=== PATIENT | male | born 1995 | race Caucasian/White ===

== ENCOUNTER → 2025-06-02 01:02 | Outpatient (BNV) | payer OTHER, SELFPAY | PROVIDERS: Emergency Provider Student in an Organized Health Care Education/Training Program; PCP Physician Assistant Medical; Visit Provider Internal Medicine | DX: R94.31 Abnormal electrocardiogram [ECG] [EKG] (principal); R07.9 Chest pain, unspecified | CPT/HCPCS: 93010 ==

== ENCOUNTER → 2025-06-02 01:44 | Outpatient (BNV) | payer OTHER, SELFPAY | PROVIDERS: Emergency Provider Student in an Organized Health Care Education/Training Program; PCP Physician Assistant Medical; Visit Provider General Practice | DX: R06.02 Shortness of breath (principal) | CPT/HCPCS: 71045 ==

== ENCOUNTER 2025-06-02 01:51 | Emergency (ER) | payer OTHER, SELFPAY ==
--- NOTE | 2025-06-02 | ECG_ITS ---
Test Reason : CP Blood Pressure : */* mmHG Vent. Rate : 90 BPM Atrial Rate : 90 BPM P-R Int : 140 ms QRS Dur : 98 ms QT Int : 344 ms P-R-T Axes : 39 28 22 degrees QTcB Int : 420 ms Normal sinus rhythm with sinus arrhythmia Slight ST elevation lateral leads and slight ST depression inferior leads Abnormal ECG No previous ECGs available Referred By: Generic ED Physician Electronically Signed By: PROMISE TAYLOR
--- NOTE | ~2025-06-02 | XR_ITS ---
CLINICAL HISTORY: sob 1 view chest x-ray Comparison: None provided Findings: No consolidation or effusion. Normal size heart. No acute fracture. IMPRESSION: 1. No acute findings. This document has been electronically signed by: Akil Laurent MD, PHD on 06/02/2025 01:27:02
[2025-06-02 01:18] LABS: Hematocrit 43.9 % (42.0-52.0); Hemoglobin 15.8 g/dl (14.0-18.0); Imm Gran Abs Auto 0.03 X10*3/uL (0.00-0.03); Imm Gran Pct Auto 0.4 % (0.0-0.4); Lymphocytes Absolute Auto 1.8 X10*3/uL (1.2-4.9); MANUAL DIFF FLAG NO; Mean Corpuscular HGB Conc 36.0 g/dl (31.0-36.0); Mean Corpuscular Hemoglobin 28.4 pg (27.0-33.0); Mean Corpuscular Volume 78.8 fL (80.0-98.0); NRBC Abs Auto 0.000 X10*3/uL (0.0-0.012); NRBC Pct Auto 0.0 /100WBC (0.0-0.2); Platelet Count 208 X10*3/uL (160-400); Red Blood Count 5.57 X10*6/uL (4.60-5.80); White Blood Count 8.5 X10*3/uL (4.8-10.8)
--- OUTSIDE RECORDS SUMMARY | 2025-06-02 01:30 | XMS_ITS | Encounter Summary ---
Author Organization [facility] Address [address] [place] [address] Care Team Providers Care Director Of Pulmonary Unit Name Role Phone Sachin Saucedo MD Primary Care Provider [phone] Whit Mays MD Primary Care Provider Unavail able Encounter Details Date Type Department Care Team Description 06/14/2017 Release of Information Medical Records [address] [place] [id number] Abstract, Provider Social History Tobacco Use Types Packs/Day Years Used Date Smoking Tobacco: Never Smokeless Tobacco: Never Alcohol Use Standard Drinks/Week Comments Yes 0 (1 standard drink = 0.6 oz pur e alcohol) a beer q2wks Sex Assigned at Date Recorded Not on file documented as of this encounter Plan of Treatment Not on file documented as of this encounter Visit Diagnoses Not on filedocumented in this encounter Care Teams Director Of Pulmonary Unit Relationship Specialty Start Date End Date Sachin Saucedo MD [address] [place], [place] [id number] PCP - General Internal Medicine 05/09/17 07/10/17 Whit Mays MD [address] [place] [id number] PCP - General 07/11/17 documented as of this encounter
--- OUTSIDE RECORDS SUMMARY | 2025-06-02 01:30 | XMS_ITS | Encounter Summary ---
Author Organization [facility] Address [address] [place] [address] Care Team Providers Care Field Enumerator Name Role Phone Sachin Saucedo MD Primary Care Provider [phone] Whit Mays MD Primary Care Provider Unavail able Reason for Visit * Reason Onset Date Comments APPOINTMENT 07/01/2017 Encounter Details Date Type Department Care Team Description 07/01/2017 Telephone Radiology - [address] [id number] Sachin Saucedo MD [address] [place] [address] [id number] APPOINTMENT Social History Tobacco Use Types Packs/Day Years Used Date Smoking Tobacco: Never Smokeless Tobacco: Never Alcohol Use Standard Drinks/Week Comments Yes 0 (1 standard drink = 0.6 oz pur e alcohol) a beer q2wks Sex Assigned at Date Recorded Not on file documented as of this encounter Miscellaneous Notes * Telephone Encounter - Shikha Voss - 07/01/2017 1:05 PM EST Dear provider, due to limited access at this time, the echocardiogram order you placed for Chapin Lorenz has been sent externally to [facility] to be performed. The order has been faxed to our Prior Authorization pool. You are not required to take any further action. documented in this encounter Plan of Treatment Not on file documented as of this encounter Visit Diagnoses Not on filedocumented in this encounter Care Teams Field Enumerator Relationship Specialty Start Date End Date Sachin Saucedo MD [address] [place] [id number] PCP - General Internal Medicine 05/09/17 07/10/17 Whit Mays MD [address] [place] [address] PCP - General 07/11/17 documented as of this encounter
[2025-06-02 01:31] LABS: Alanine Aminotransferase 46 U/L (0-40); Albumin Level 4.5 g/dL (3.5-5.0); Alkaline Phosphatase 67 U/L (39-117); Anion Gap 15 (12-20); Aspartate Amino Transferase 39 U/L (5-37); Blood Urea Nitrogen 14 mg/dL (9-16); Calcium 8.7 mg/dL (8.4-10.2); Carbon Dioxide 23 mmol/L (22-29); Chloride 98 mmol/L (96-108); Creatinine Clr Calc Pharmacy 114.1; Estimated Glomerular Filt Rate > 60; Potassium 3.2 mmol/L (3.3-5.1); Sodium 133 mmol/L (135-145); Total Protein 7.6 g/dL (6.5-8.0)
[2025-06-02 01:43] LABS: Troponin-I High Sensitivity 542.6 ng/L (<3.5-35.0)
--- NOTE | 2025-06-02 01:43 | ED.CHESTPAIN ---
HPI - Chest Pain General Chief Complaint: Chest Pain Stated Complaint: chest pain that goes down the neck/SOB Time Seen by Provider: 06/02/25 01:36 EST Source: patient Mode of arrival: ambulatory Limitations: no limitations History of Present Illness ED Provider: Dr. Nuno HPI narrative: 29-year-old male no medical history presented hospital today for evaluation of chest pressure sensation and shortness of breath started at 15:00 today. The patient stated that he has been having diarrhea for the past couple of days. It has not been feeling right. He is complaining of some shortness of breath. No cough. Complaining of sternal chest pressure sensation. Related Data Allergies Allergy/AdvReac Type Severity Reaction Status Date / Time amoxicillin Allergy Unknown Verified 06/02/25 01:59 EDT Review of Systems Review of Systems: Pertinent review of systems as mentioned in HPI. All other system otherwise negative. [facility] Past Medical History [facility] Narrative: None Social History Social History Advance Directives: No Advance Directives Information Provided: Yes Do you have a plan to hurt others: No Plan Physical Exam Exam: Exam: General: Pleasant, no distress, interacting appropriately Head: Normacephalic, atraumatic ENT: oral mucosa moist, neck supple, no tracheal deviation Cardiovascular: regular rate, regular rhythm, no murmurs, rubbing, gallops Respiratory: CTAB, no wheeze, rales, rhonchi Gastrointestinal: Soft, non distended, non tender, non guarding Extremities: No limb pain or swelling, no calf tenderness Neurological: Awake and alert, no facial droop noted Skin: Warm and dry Psychiatric: Appropriate mood and thoughts Vital Signs: Vital Signs: Last Vital Signs Pulse 88 06/02/25 02:50 Resp 13 06/02/25 02:50 BP 125/68 06/02/25 02:50 Pulse Ox 100 06/02/25 02:50 O2 Del Method Room Air 06/02/25 02:50 BMI result Body Mass Index 29.3 Medications Administered Generic Name Dose Route Start Last Admin Trade Name Freq PRN Reason Stop Dose Admin Sodium Chloride 500 mls @ 500 mls/hr 06/02/25 02:00 06/02/25 02:50 Ns IV 06/02/25 02:59 Infused .Q1H DONAVAN Infusion Discontinued Medications Generic Name Dose Route Start Last Admin Trade Name Freq PRN Reason Stop Dose Admin Aspirin 324 mg 06/02/25 01:43 EST 06/02/25 02:11 Aspirin 81 Mg Tab.Chew PO 06/02/25 01:44 EST 324 mg ONCE ONE Administration Morphine Sulfate 4 mg 06/02/25 02:08 06/02/25 02:16 Morphine Sulfate 10 Mg/Ml Cartridge IVPUSH 06/02/25 02:09 4 mg ONCE ONE Administration Protocol Nitroglycerin 0.4 mg 06/02/25 01:50 EST 06/02/25 02:10 Nitroglycerin 0.4 Mg Tab.Subl SUBLINGUAL 06/02/25 01:51 EST 0.4 mg ONCE ONE Administration Ticagrelor 180 mg 06/02/25 02:24 06/02/25 02:48 Ticagrelor 90 Mg Tablet PO 06/02/25 02: 180 mg ONCE ONE Administration Medical Decision Making Medical Decision Making [facility] Narrative: 29-year-old male presented hospital today for evaluation of chest pain and shortness of breath. EKG was obtained. Patient does have slight elevation in the lateral leads. Does not meet STEMI criteria. He also has Q-waves in the lateral leads. Initial troponin of 540. Second troponin 661. I did talk the case with Dr. Coe . Recommends calling [facility] and reaching out to them. Patient will be started on heparin drip at this time aspirin, morphine, purulent a, nitroglycerin was given. Patient stated that when the nitroglycerin was given he felt the most relief afterward. He still has slight chest pressure sensation however his pain is much improved at this time. Discussed case with Dr. Adair who recommended transferring to [facility] at this time. He will be the accepting doctor. Discussed with the patient a plan he agrees and understands. Patient will be transferred to [facility] vital signs stable at this time Differential Diagnosis Differential Diagnoses: The differential diagnosis associated with the presentation includes NSTEMI, STEMI, ACS, cardiomyopathy, myocarditis, pericarditis Lab Data [facility] Lab Attestation statement: I reviewed the patient's lab results. 06/02/25 01:11 EST 06/02/25 01:11 EST Labs: Lab Results 06/02/25 06/02/25 06/02/25 Range/Units 01:10 EST 01:11 EST 01:56 EST WBC 8.5 (4.8-10.8) X10*3/uL RBC 5.57 (4.60-5.80) X10*6/uL Hgb 15.8 (14.0-18.0) g/dl Hct 43.9 (42.0-52.0) % MCV 78.8 L (80.0-98.0) fL MCH 28.4 (27.0-33.0) pg MCHC 36.0 (31.0-36.0) g/dl RDW 11.9 (11.0-16.0) % Plt Count 208 (160-400) X10*3/uL MPV 10.1 (9.4-12.4) fL Immature Gran % (Auto) 0.4 (0.0-0.4) % Neut % (Auto) 64.9 (45-73) % Lymph % (Auto) 21.0 (20-40) % [place] % (Auto) 12.9 H (2-11) % Eos % (Auto) 0.6 (0-4) % Baso % (Auto) 0.2 (0-2) % Lymph # (Auto) 1.8 (1.2-4.9) X10*3/uL [place] # (Auto) 1.1 (0.1-1.2) X10*3/uL Eos # (Auto) 0.1 (0.0-0.4) X10*3/uL Baso # (Auto) 0.0 (0.0-0.2) X10*3/uL Abs Immat Gran (auto) 0.03 (0.00-0.03) X10*3/uL Absolute Neuts (auto) 5.5 (2.0-8.3) x10*3/uL Absolute Nucleated RBC 0.000 (0.0-0.012) X10*3/uL Nucleated RBC % (auto) 0.0 (0.0-0.2) /100WBC Sodium 133 L (135-145) mmol/L Potassium 3.2 L (3.3-5.1) mmol/L Chloride 98 (96-108) mmol/L Carbon Dioxide 23 (22-29) mmol/L Anion Gap 15 (12-20) BUN 14 (9-16) mg/dL Creatinine 1.08 (0.5-1.4) mg/dL Estim Creat Clear Calc 114.1 Estimated GFR > 60 Random Glucose 110 (60-115) mg/dL Calcium 8.7 (8.4-10.2) mg/dL Magnesium 2.0 (1.6-2.6) mg/dL Total Bilirubin 0.6 (0.0-1.0) mg/dL AST 39 H (5-37) U/L ALT 46 H (0-40) U/L Alkaline Phosphatase 67 (39-117) U/L Troponin I High Sens 542.6 H* 661.5 H* (<3.5-35.0) ng/L NT-Pro-B Natriuret Pep 350.3 H (<300) pg/mL Total Protein 7.6 (6.5-8.0) g/dL Albumin 4.5 (3.5-5.0) g/dL Independent Interpretation I performed an independent interpretation of an: EKG and Plain X-Ray Radiology Impression Discussion of test interpretation with radiology: I have reviewed the radiologist's reading. Critical Care Time Critical Care Time Critical Care Time: Yes Total Critical Care Time: 50 Attestation: Time is exclusive of separately billable procedures. Time includes: direct patient care, patient reassessment, coordination of patient care, interpretation of data (laboratory data, pulse oximetry, arterial blood gases and chest xrays), review of patient's medical records, medical consultation and documentation of patient care. Procedures excluded from critical care time: central intravenous line placement and electrocardiography. Discharge Plan Discharge Clinical Impression: Acute non-ST elevation myocardial infarction (NSTEMI) Patient Disposition: [facility] Transfer Details: [facility], Dr. Adari Print Language: Romanian
--- NOTE | 2025-06-02 01:50 | ECG_ITS ---
Test Reason : CHEST PAIN Blood Pressure : */* mmHG Vent. Rate : 90 BPM Atrial Rate : 90 BPM P-R Int : 130 ms QRS Dur : 100 ms QT Int : 346 ms P-R-T Axes : 12 22 10 degrees QTcB Int : 423 ms Normal sinus rhythm Slight ST elevation lateral leads and slight ST depression inferior leads When compared with ECG of 02-Jun-2025 01:02, No significant change was found Referred By: Valentina Nuno Electronically Signed By: PROMISE TAYLOR
[2025-06-02 01:55] VITALS: BP 131/79; PULSE 101; RESP 18; O2SAT 96; BMI 27.9
[2025-06-02 02:13] LABS: Magnesium 2.0 mg/dL (1.6-2.6)
[2025-06-02 02:21] LABS: NT Pro B Type Natriuretic Pept 350.3 pg/mL (<300)
[2025-06-02 02:23] LABS: Troponin-I High Sensitivity 661.5 ng/L (<3.5-35.0)
[2025-06-02 02:35] VITALS: BMI 29.3
[2025-06-02 02:50] VITALS: BP 125/68; PULSE 88; RESP 13; O2SAT 100
[2025-06-02 03:06] LABS: INTERNATIONAL NORM RATIO 1.4 (0.9-1.1); Prothrombin Time 16.5 SEC (10.9-12.4)
[2025-06-02 03:09] LABS: Partial Thromboplastin Time 24.6 SEC (26.7-34.1)
[2025-06-02] MEDS: Heparin Sodium,Porcine/1/2NS 25,000 UNIT/250 ML IV.SOLN 10 UNIT IVCONT (03:13)
[2025-06-02 03:16] LABS: IDNOW Serial# 152EDE1D; Influenza B2 Negative (Negative)
[2025-06-02 03:16] LABS: COVID-19 Test Negative (Negative); IDNOW Serial# 16C4AD1C
--- NOTE | 2025-06-02 03:37 | PC.NURSE ---
nurse to nurse report called to Giovanna EAGLE at [facility]
[2025-06-02 03:38] VITALS: BP 125/68; PULSE 88; RESP 13; TEMP 36.6; O2SAT 100
== END 2025-06-02 03:42 | disposition short-term general hospital (02) ==
PROVIDERS: Emergency Provider Student in an Organized Health Care Education/Training Program; PCP Physician Assistant Medical
DX: I21.4 Non-ST elevation (NSTEMI) myocardial infarction (principal); R06.02 Shortness of breath; R07.9 Chest pain, unspecified
CPT/HCPCS: 36415; 71045; 80053; 83735; 83880; 84484; 85025; 85610; 85730; 87502; 87635; 93005; 96361; 96374; 96375; 99285; 99291; J1644; J2270